=== PATIENT | male | born 1960 | race Caucasian/White ===

== ENCOUNTER 2018-10-31 22:58 | Emergency (ER) | payer MEDICARE ==
[2018-10-31 23:40] LABS: CHLORIDE,CL 106 mmol/L (98-107); SODIUM,NA 141 mmol/L (136-145)
--- NOTE | 2018-11-01 00:09 | EDM.PDOC ---
ED HPI GENERAL MEDICAL PROBLEM - General Chief Complaint: Trauma Stated Complaint: fall; laceration Time Seen by Provider: 10/31/18 23:23 Source of Information: Reports: Patient, EMS, Family History Limitations: Reports: Uncooperative (and intoxicated) - History of Present Illness INITIAL COMMENTS - FREE TEXT/NARRATIVE: Patient was out drinking tonight. After returning home had unwitnessed fall while having additional ETOH on own. Broken glass on floor. Uncertain if LOC after fall. Patient had large hematoma on front of forehead. Has multiple lacerations on lower 1/2 of face, behind ear, hands, legs. Very deep laceration right lower leg. Complaining of pain right lower leg. Does not remember how he fell or any circumstances around the fall. No other acute complaints. Brought by EMS with C-collar in place. Patient denies having any chronic medical problems and says he is not on any medications. Says that he quit drinking several months ago but then added that he has had a few drinks since then. Denies illegal drug use other than intermittent THC. Past Medical History - Past Health History Medical/Surgical History: Denies Medical/Surgical History Social & Family History - Tobacco Use Tobacco Use Within Last Twelve Months: No - Caffeine Use Caffeine Use: Reports: None - Alcohol Use Alcohol Use History: Yes Days Per Week of Alcohol Use Comment: Uncertain exactly how much he drinks, says that he quit, but admits he has had a few drinks since he quit. - Recreational Drug Use Recreational Drug Type: Reports: Marijuana/Hashish Review of Systems - Review of Systems Review Of Systems: See Below Constitutional: Reports: No Symptoms Eyes: Reports: No Symptoms Ears: Reports: No Symptoms Nose: Reports: No Symptoms Mouth/Throat: Reports: No Symptoms, Other (says teeth line up well, no difficulty opening and closing jaw) Respiratory: Reports: No Symptoms Cardiovascular: Reports: No Symptoms. Denies: Chest Pain GI/Abdominal: Reports: No Symptoms, Other (lower abdominal discomfort from need to urinate. Resolved after urination) Genitourinary: Reports: No Symptoms Musculoskeletal: Reports: Leg Pain (right) Skin: Reports: Wound (multiple small/medium lacerations face/hands/legs), Lumps (forehead) Neurological: Denies: Headache (denies), Numbness, Paresthesia, Tingling, Trouble Speaking Psychiatric: Reports: Other (Patient is not quite his usual self per ). Denies: Agitation, Hallucinations, Suicidal Ideation, Homicidal Ideation, Hallucinations (Auditory), Hallucinations (Visual) ED EXAM, GENERAL - Physical Exam Exam: See Below General Appearance: Alert, Other (smells of ETOH, no acute distress) Eye Exam: Bilateral Eye: EOMI, PERRL Ears: Hearing Grossly Normal, Other (laceration behind left ear) Nose: No: Nasal Deformity, Nasal Swelling Throat/Mouth: Normal Inspection, Normal Oropharynx, Normal Voice, No Airway Compromise Head: Facial Swelling (hematoma right forehead), Facial Tenderness (over lacerations). No: Sinus Tenderness Neck: Non-Tender (when palpated around C-collar) Respiratory/Chest: No Respiratory Distress, Lungs Clear, Normal Breath Sounds, No Accessory Muscle Use, Chest Non-Tender Cardiovascular: Regular Rate, Rhythm, No Edema, No Murmur GI/Abdominal: Normal Bowel Sounds, Soft, Non-Tender, No Distention (Male) Exam: Deferred Rectal (Males) Exam: Deferred Back Exam: Normal Inspection. No: CVA Tenderness (L), CVA Tenderness (R), Muscle Spasm, Paraspinal Tenderness, Vertebral Tenderness Extremities: Normal Range of Motion, Normal Capillary Refill, Other ( lacerations around hands/legs). No: Pedal Edema Neurological: Alert, Oriented, CN II-XII Intact, No Motor/Sensory Deficits, Other (Intoxicated) Psychiatric: Other (rather angry/grumpy demeanor, easily irritated) Skin Exam: Warm, Other (multiple small lacerations around hands/fingers, several lacerations lower half of face, one behind left ear, multiple lacerations legs including one very large laceration right lower leg approx 13cm , very deep, active bleeding if pressure removed. See ER flow sheet for more complete list of lacerations and length of them. ) Course - Orders/Labs/Meds Orders: Active Orders 24 hr Category Date Time Status Cervical Spine wo Cont [CT] Stat Exams 10/31/18 23:36 Ordered Head wo Cont [CT] Stat Exams 10/31/18 23:05 Taken Sodium Chloride 0.9% [Normal Saline] 1,000 ml Med 11/01/18 00:17 Ordered IV .BOLUS Medication Orders Sodium Chloride (Normal Saline) 1,000 mls @ 500 mls/hr IV .BOLUS ONE Stop: 11/01/18 02:16 Labs: Laboratory Tests 10/31/18 10/31/18 10/31/18 Range/Units 23:20 23:20 23:55 WBC 7.9 (4.0-10.2) K/uL RBC 4.49 (4.33-5.41) M/uL Hgb 15.0 (13.1-16.8) g/dL Hct 41.3 (39.0-49.0) % MCV 92.0 (84.0-98.0) fL MCH 33.4 H (28.2-33.3) pg MCHC 36.3 H (31.7-36.0) g/dL RDW 12.6 (11.2-14.1) % Plt Count 193 (150-350) K/uL Neut % (Auto) 59.1 (45.0-80.0) % Lymph % (Auto) 27.4 (10.0-50.0) % [place] % (Auto) 10.3 (2.0-14.0) % Eos % (Auto) 2.9 (0.0-5.0) % Baso % (Auto) 0.3 (0.0-2.0) % Neut # (Auto) 4.64 (1.40-7.00) K/uL Lymph # (Auto) 2.15 (0.50-3.50) K/uL [place] # (Auto) 0.81 (0.00-1.00) K/uL Eos # (Auto) 0.23 (0.00-0.50) K/uL Baso # (Auto) 0.02 (0.00-0.20) K/uL Sodium 141 (136-145) mmol/L Potassium 3.4 L (3.5-5.1) mmol/L Chloride 106 (98-107) mmol/L Carbon Dioxide 18.7 L (21.0-32.0) mmol/L BUN 17 (7-18) mg/dL Creatinine 0.85 (0.51-1.17) mg/dL Est Cr Clr Drug Dosing TNP Estimated GFR (MDRD) > 60 mL/min Glucose 120 H (74-106) mg/dL Calcium 9.0 (8.5-10.1) mg/dL Total Bilirubin 0.3 (0.2-1.0) mg/dL AST 33 (15-37) U/L ALT 70 (12-78) U/L Alkaline Phosphatase 86 (46-116) IU/L Total Protein 7.4 (6.4-8.2) g/dL Albumin 4.0 (3.4-5.0) g/dL Specimen Type Urine Color Urine Appearance Urine pH (5.0-9.0) Ur Specific [place] (1.005-1.030) Urine Protein (NEGATIVE) mg/dL Urine Glucose (UA) (NEGATIVE) mg/dL Urine Ketones (NEGATIVE) mg/dL Urine Occult Blood (NEGATIVE) Urine Nitrite (NEGATIVE) Urine Bilirubin (NEGATIVE) Urine Urobilinogen (0.2-1.0) E.U./dL Ur Leukocyte Esterase (NEGATIVE) Urine RBC /HPF Urine WBC /HPF Ur Epithelial Cells /LPF Urine Bacteria (NONE TO FEW) /HPF Urine Opiates Screen Negative (NEGATIVE) Urine Methadone Screen Negative (NEGATIVE) U Acetaminophen Screen Negative (NEGATIVE) Ur Barbiturates Screen Negative (NEGATIVE) Ur Tricyclics Screen Negative (NEGATIVE) Ur Phencyclidine Scrn Negative (NEGATIVE) Ur Amphetamine Screen Negative (NEGATIVE) U Methamphetamines Scrn Negative (NEGATIVE) U Benzodiazepines Scrn Negative (NEGATIVE) U Cocaine Metab Screen Negative (NEGATIVE) U Marijuana (THC) Screen Positive H (NEGATIVE) Ethyl Alcohol 0.221 H (0.000-0.080) g/dL 10/31/18 Range/Units 23:55 WBC (4.0-10.2) K/uL RBC (4.33-5.41) M/uL Hgb (13.1-16.8) g/dL Hct (39.0-49.0) % MCV (84.0-98.0) fL MCH (28.2-33.3) pg MCHC (31.7-36.0) g/dL RDW (11.2-14.1) % Plt Count (150-350) K/uL Neut % (Auto) (45.0-80.0) % Lymph % (Auto) (10.0-50.0) % [place] % (Auto) (2.0-14.0) % Eos % (Auto) (0.0-5.0) % Baso % (Auto) (0.0-2.0) % Neut # (Auto) (1.40-7.00) K/uL Lymph # (Auto) (0.50-3.50) K/uL [place] # (Auto) (0.00-1.00) K/uL Eos # (Auto) (0.00-0.50) K/uL Baso # (Auto) (0.00-0.20) K/uL Sodium (136-145) mmol/L Potassium (3.5-5.1) mmol/L Chloride (98-107) mmol/L Carbon Dioxide (21.0-32.0) mmol/L BUN (7-18) mg/dL Creatinine (0.51-1.17) mg/dL Est Cr Clr Drug Dosing Estimated GFR (MDRD) mL/min Glucose (74-106) mg/dL Calcium (8.5-10.1) mg/dL Total Bilirubin (0.2-1.0) mg/dL AST (15-37) U/L ALT (12-78) U/L Alkaline Phosphatase (46-116) IU/L Total Protein (6.4-8.2) g/dL Albumin (3.4-5.0) g/dL Specimen Type Urinvoid Urine Color Yellow Urine Appearance Clear Urine pH 5.5 (5.0-9.0) Ur Specific [place] <= 1.005 (1.005-1.030) Urine Protein Negative (NEGATIVE) mg/dL Urine Glucose (UA) Negative (NEGATIVE) mg/dL Urine Ketones Negative (NEGATIVE) mg/dL Urine Occult Blood Negative (NEGATIVE) Urine Nitrite Negative (NEGATIVE) Urine Bilirubin Negative (NEGATIVE) Urine Urobilinogen 0.2 (0.2-1.0) E.U./dL Ur Leukocyte Esterase Negative (NEGATIVE) Urine RBC Not seen /HPF Urine WBC Not seen /HPF Ur Epithelial Cells Occasional /LPF Urine Bacteria Occasional (NONE TO FEW) /HPF Urine Opiates Screen (NEGATIVE) Urine Methadone Screen (NEGATIVE) U Acetaminophen Screen (NEGATIVE) Ur Barbiturates Screen (NEGATIVE) Ur Tricyclics Screen (NEGATIVE) Ur Phencyclidine Scrn (NEGATIVE) Ur Amphetamine Screen (NEGATIVE) U Methamphetamines Scrn (NEGATIVE) U Benzodiazepines Scrn (NEGATIVE) U Cocaine Metab Screen (NEGATIVE) U Marijuana (THC) Screen (NEGATIVE) Ethyl Alcohol (0.000-0.080) g/dL Meds: Medications Generic Name Dose Route Start Last Admin Trade Name Freq PRN Reason Stop Dose Admin Sodium Chloride 1,000 mls @ 500 mls/hr 11/01/18 00:17 Normal Saline IV 11/01/18 02:16 .BOLUS ONE Discontinued Medications Generic Name Dose Route Start Last Admin Trade Name Freq PRN Reason Stop Dose Admin Thiamine HCl 100 mg/ Sodium 101 mls @ 202 mls/hr 11/01/18 00:18 Chloride IV 11/01/18 00:19 ONETIME ONE Ondansetron HCl 4 mg 11/01/18 00:18 Zofran IVPUSH 11/01/18 00:19 ONETIME ONE Potassium Chloride 40 meq 11/01/18 00:17 Potassium Chloride Solution PO 11/01/18 00:18 ONETIME ONE - Radiology Interpretation Free Text/Narrative:: CT of head and neck ordered due to patient's fall/history of trauma, and intoxication. Head CT read as negative except for the visible hematoma near the forehead. - Re-Assessments/Exams Free Text/Narrative Re-Assessment/Exam: Baseline exam performed, CT studies ordered, labs requested. Patient stable/vital signs stable. Blood ETOH .22 Given the depth/complexity of large laceration of the right lower leg, it was felt appropriate to refer the patient to a higher level of care where Surgery coverage available to evaluate and treat patient. Call placed to [facility]. Patient accepted by from their ER. Patient refused to keep C collar in place. Head CT cleared by Radiology but there was some motion artifact in the neck scan. No obvious fractures per Radiology but they recommended repeating the scan once patient is sober and more cooperative if point tenderness or other concerns arise later. IV fluids ordered. Zofran, Thiamine ordered. Neck nontender after patient removed C-collar. Transfer to [facility] by EMS. Departure - Departure Time of Disposition: 00:40 Disposition: DC/Tfer to Acute Hospital 02 Condition: Good Clinical Impression: Laceration of multiple sites Alcohol intoxication Qualifiers: Complication of substance-induced condition: uncomplicated Qualified Code(s): F10.920 - Alcohol use, unspecified with intoxication, uncomplicated Laceration of right lower extremity Qualifiers: Encounter type: initial encounter Qualified Code(s): S81.811A - Laceration without foreign body, right lower leg, initial encounter Head contusion Qualifiers: Encounter type: initial encounter Contusion of head detail: unspecified part of head Qualified Code(s): S00.93XA - Contusion of unspecified part of head, initial encounter - Discharge Information *PRESCRIPTION DRUG MONITORING PROGRAM REVIEWED*: Not Applicable *COPY OF PRESCRIPTION DRUG MONITORING REPORT IN PATIENT LORIN: Not Applicable Forms: ED Department Discharge - My Orders Last 24 Hours: My Active Orders 10/31/18 23:05 Head wo Cont [CT] Stat 10/31/18 23:36 Cervical Spine wo Cont [CT] Stat 11/01/18 00:17 Sodium Chloride 0.9% [Normal Saline] 1,000 ml IV .BOLUS - Assessment/Plan Last 24 Hours: My Active Orders 10/31/18 23:05 Head wo Cont [CT] Stat 10/31/18 23:36 Cervical Spine wo Cont [CT] Stat 11/01/18 00:17 Sodium Chloride 0.9% [Normal Saline] 1,000 ml IV .BOLUS
[2018-11-01] MEDS ORDERED: Sodium Chloride 0.9% 1,000 ML IV ONE (00:17)
[2018-11-01] MEDS ORDERED: Potassium Chloride 10% 20 MEQ/15 ML Soln 15 ML UD Cup PO ONE (00:17)
[2018-11-01] MEDS ORDERED: Ondansetron 4 MG/2 ML SDV IVPUSH ONE (00:18)
[2018-11-01 00:19] LABS: BARBITURATE SCREEN,URINE NEGATIVE (NEGATIVE); BENZODIAZEPINES SCREEN,URINE NEGATIVE (NEGATIVE); TCA SCREEN,URINE NEGATIVE (NEGATIVE); THC SCREEN,URINE 50 NG/ML POSITIVE (NEGATIVE)
[2018-11-01] MEDS: Thiamine 100 MG in Sodium Chloride 0.9% 100 ML IV ONE (00:30)
== END 2018-11-01 00:55 ==
LOC: LL.ED 22:58
DX: S81.811A Laceration without foreign body, right lower leg, initial encounter (principal); S01.312A Laceration without foreign body of left ear, initial encounter; S61.219A Laceration without foreign body of unspecified finger without damage to nail, initial encounter; S81.812A Laceration without foreign body, left lower leg, initial encounter; S01.81XA Laceration without foreign body of other part of head, initial encounter; F10.120 Alcohol abuse with intoxication, uncomplicated; Y90.7 Blood alcohol level of 200-239 mg/100 ml; W19.XXXA Unspecified fall, initial encounter; Y92.009 Unspecified place in unspecified non-institutional (private) residence as the place of occurrence of the external cause
CPT/HCPCS: 36415; 70450; 72125; 80053; 80305-QW; 81001; 85025; 96365; 96375; 99284; 99285-25; A9270-GY; G0390; G0480; J2405; J3411; J7030; J7050

== ENCOUNTER 2020-11-20 12:17 | Emergency (ER) | payer MEDICAID, MEDICARE, OTHER ==
[2020-11-20] MEDS ORDERED: Lactated Ringers 1,000 ML IV ONE ×2 (12:28→13:08)
[2020-11-20] MEDS ORDERED: diphenhydrAMINE 50 MG/ML SDV IVPUSH ONE (12:28)
[2020-11-20] MEDS ORDERED: Morphine 4 MG/ML Syringe IVPUSH ONE (12:28)
[2020-11-20] MEDS ORDERED: Sodium Chloride 0.9% 10 ML Syringe FLUSH PRN (12:28)
--- NOTE | 2020-11-20 12:35 | EDM.PDOC ---
ED [facility] GENERAL MEDICAL PROBLEM - General Chief Complaint: Abdominal Pain Stated Complaint: abdominal pain Time Seen by Provider: 11/20/20 12:18 Source of Information: Reports: Patient History Limitations: Reports: No Limitations - History of Present Illness INITIAL COMMENTS - FREE TEXT/NARRATIVE: Patient comes emergency department today from home with complaints of abdominal pain and right flank pain. This patient yesterday was without any symptoms. At 4:00 this morning he woke up and he has had multiple diarrheal stools. He has generalized abdominal pain as well as right flank pain. He does complain of urinary frequency no dysuria or hematuria. No fever no chills. No chest pain no shortness of breath or difficulty breathing. No cough or congestion. He has had no surgeries on his abdomen in the past. He has not been on antibiotics recently. No one else is ill in his home. He has not been traveling. He has had nausea without vomiting. His pain is out of control all over his abdomen into his back. He does have a history of melanoma. - Related Data Allergies Allergy/AdvReac Type Severity Reaction Status Date / Time No Known Allergies Allergy Verified 11/20/20 12:21 Home Meds: Home Meds . [No Known Home Meds] 11/20/20 [History] Past Medical History - Past Health History Medical/Surgical History: Denies Medical/Surgical History Social & Family History - Caffeine Use Caffeine Use: Reports: None ED ROS GENERAL - Review of Systems Review Of Systems: Comprehensive ROS is negative, except as noted in HPI. ED EXAM, GI/ABD - Physical Exam Exam: See Below Exam Limited By: No Limitations General Appearance: Alert, WD/WN, Mild Distress Eyes: Bilateral: EOMI Ears: Normal External Exam Nose: Normal Inspection Throat/Mouth: Normal Inspection Head: Atraumatic, Normocephalic, Sinus Tenderness Neck: Supple Respiratory/Chest: No Respiratory Distress, Lungs Clear, Normal Breath Sounds, No Accessory Muscle Use, Chest Non-Tender Cardiovascular: Normal Peripheral Pulses, Regular Rate, Rhythm GI/Abdominal Exam: Normal Bowel Sounds, Soft, Distended, Guarding (RLQ and LLQ), Rebound, Tender (generalized without rigidity. ). No: Rigid (Male) Exam: Deferred Rectal (Males) Exam: Deferred Back Exam: Normal Inspection, Full Range of Motion Extremities: Normal Inspection, Normal Range of Motion, Non-Tender, No Pedal Edema, Normal Capillary Refill Neurological: Alert, Oriented, Normal Cognition, Normal Gait, No Motor/Sensory Deficits Psychiatric: Normal Affect, Normal Mood Skin Exam: Warm, Dry, Intact, Normal Color, No Rash Course - Vital Signs Last Recorded V/S: Last Vital Signs Temp 98.3 F 11/20/20 12:25 Pulse 58 L 11/20/20 13:23 Resp 18 11/20/20 13:23 BP 115/69 11/20/20 13:23 Pulse Ox 100 11/20/20 13:23 - Orders/Labs/Meds Orders: Active Orders 24 hr Category Date Time Status Peripheral IV Care [RC] . DIRECTED Care 11/20/20 12:28 Active Abdomen Pelvis w Cont [CT] Stat Exams 11/20/20 12:36 Taken Lactated Ringers [Ringers, Lactated] 1,000 ml Med 11/20/20 13:08 Active IV .BOLUS Piperacillin/Tazobactam [Zosyn] 3.375 gm Med 11/20/20 13:50 Ordered Sodium Chloride 0.9% [Normal Saline] 100 ml IV NOW Sodium Chloride 0.9% [Saline Flush] Med 11/20/20 12:28 Active 10 ml FLUSH ASDIRECTED PRN Peripheral IV Insertion Adult [OM.PC] Stat Oth 11/20/20 12:27 Ordered Medication Orders Lactated Ringer's (Ringers, Lactated) 1,000 mls @ 1,000 mls/hr IV .BOLUS ONE Stop: 11/20/20 14:07 Last Admin: 11/20/20 13:46 Dose: 1,000 mls/hr Documented by: ODETTE Piperacillin Sod/Tazobactam (Sod 3.375 gm/ Sodium Chloride) 100 mls @ 200 mls/hr IV NOW STA Stop: 11/20/20 14:19 Sodium Chloride (Sodium Chloride 0.9% 10 Ml Syringe) 10 ml FLUSH ASDIRECTED PRN PRN Reason: Keep Vein Open Last Admin: 11/20/20 12:41 Dose: 10 ml Documented by: ODETTE Labs: Laboratory Tests 11/20/20 11/20/20 11/20/20 Range/Units 12:35 12:35 12:35 WBC 16.1 H (4.0-10.2) K/uL RBC 5.37 (4.33-5.41) M/uL Hgb 17.1 H D (13.1-16.8) g/dL Hct 46.5 (39.0-49.0) % MCV 86.6 D (84.0-98.0) fL MCH 31.8 (28.2-33.3) pg MCHC 36.8 H (31.7-36.0) g/dL RDW 12.6 (11.2-14.1) % Plt Count 222 (150-350) K/uL Neut % (Auto) 80.7 H (45.0-80.0) % Lymph % (Auto) 11.7 (10.0-50.0) % [place] % (Auto) 6.8 (2.0-14.0) % Eos % (Auto) 0.7 (0.0-5.0) % Baso % (Auto) 0.1 (0.0-2.0) % Neut # (Auto) 12.97 H (1.40-7.00) K/uL Lymph # (Auto) 1.88 (0.50-3.50) K/uL [place] # (Auto) 1.09 H (0.00-1.00) K/uL Eos # (Auto) 0.11 (0.00-0.50) K/uL Baso # (Auto) 0.01 (0.00-0.20) K/uL Sodium 138 (136-145) mmol/L Potassium 3.9 (3.5-5.1) mmol/L Chloride 103 (98-107) mmol/L Carbon Dioxide 21.8 (21.0-32.0) mmol/L BUN 14 (7-18) mg/dL Creatinine 0.97 (0.51-1.17) mg/dL Est Cr Clr Drug Dosing 87.33 mL/min Estimated GFR (MDRD) > 60 mL/min Glucose 105 H (70-99) mg/dL Lactic Acid 1.8 (0.4-2.0) mmol/L Calcium 9.4 (8.5-10.1) mg/dL Total Bilirubin 0.6 (0.2-1.0) mg/dL AST 19 (15-37) U/L ALT 36 (12-78) U/L Alkaline Phosphatase 85 (46-116) IU/L C-Reactive Protein < 0.2 (<=0.9) mg/dL Total Protein 7.5 (6.4-8.2) g/dL Albumin 4.0 (3.4-5.0) g/dL Lipase 97 (73-393) U/L Specimen Type Urine Color Urine Appearance Urine pH (5.0-9.0) Ur Specific [place] (1.005-1.030) Urine Protein (NEGATIVE) mg/dL Urine Glucose (UA) (NEGATIVE) mg/dL Urine Ketones (NEGATIVE) mg/dL Urine Occult Blood (NEGATIVE) Urine Nitrite (NEGATIVE) Urine Bilirubin (NEGATIVE) Urine Urobilinogen (0.2-1.0) E.U./dL Ur Leukocyte Esterase (NEGATIVE) 11/20/20 Range/Units 13:25 WBC (4.0-10.2) K/uL RBC (4.33-5.41) M/uL Hgb (13.1-16.8) g/dL Hct (39.0-49.0) % MCV (84.0-98.0) fL MCH (28.2-33.3) pg MCHC (31.7-36.0) g/dL RDW (11.2-14.1) % Plt Count (150-350) K/uL Neut % (Auto) (45.0-80.0) % Lymph % (Auto) (10.0-50.0) % [place] % (Auto) (2.0-14.0) % Eos % (Auto) (0.0-5.0) % Baso % (Auto) (0.0-2.0) % Neut # (Auto) (1.40-7.00) K/uL Lymph # (Auto) (0.50-3.50) K/uL [place] # (Auto) (0.00-1.00) K/uL Eos # (Auto) (0.00-0.50) K/uL Baso # (Auto) (0.00-0.20) K/uL Sodium (136-145) mmol/L Potassium (3.5-5.1) mmol/L Chloride (98-107) mmol/L Carbon Dioxide (21.0-32.0) mmol/L BUN (7-18) mg/dL Creatinine (0.51-1.17) mg/dL Est Cr Clr Drug Dosing mL/min Estimated GFR (MDRD) mL/min Glucose (70-99) mg/dL Lactic Acid (0.4-2.0) mmol/L Calcium (8.5-10.1) mg/dL Total Bilirubin (0.2-1.0) mg/dL AST (15-37) U/L ALT (12-78) U/L Alkaline Phosphatase (46-116) IU/L C-Reactive Protein (<=0.9) mg/dL Total Protein (6.4-8.2) g/dL Albumin (3.4-5.0) g/dL Lipase (73-393) U/L Specimen Type Urinvoid Urine Color Yellow Urine Appearance Clear Urine pH 8.5 (5.0-9.0) Ur Specific [place] 1.015 (1.005-1.030) Urine Protein Negative (NEGATIVE) mg/dL Urine Glucose (UA) Negative (NEGATIVE) mg/dL Urine Ketones Negative (NEGATIVE) mg/dL Urine Occult Blood Negative (NEGATIVE) Urine Nitrite Negative (NEGATIVE) Urine Bilirubin Negative (NEGATIVE) Urine Urobilinogen 0.2 (0.2-1.0) E.U./dL Ur Leukocyte Esterase Negative (NEGATIVE) Meds: Medications Generic Name Dose Route Start Last Admin Trade Name Freq PRN Reason Stop Dose Admin Lactated Ringer's 1,000 mls @ 1,000 mls/hr 11/20/20 13:08 11/20/20 13:46 Ringers, Lactated IV 11/20/20 14:07 1,000 mls/hr .BOLUS ONE Administration Piperacillin Sod/Tazobactam 100 mls @ 200 mls/hr 11/20/20 13:50 Sod 3.375 gm/ Sodium Chloride IV 11/20/20 14:19 NOW STA Sodium Chloride 10 ml 11/20/20 12:28 11/20/20 12:41 Sodium Chloride 0.9% 10 Ml Syringe FLUSH 10 ml ASDIRECTED PRN Administration Keep Vein Open Discontinued Medications Generic Name Dose Route Start Last Admin Trade Name Freq PRN Reason Stop Dose Admin Diphenhydramine HCl 25 mg 11/20/20 12:28 11/20/20 12:40 Diphenhydramine 50 Mg/Ml Sdv IVPUSH 11/20/20 12:29 25 mg ONETIME ONE Administration Lactated Ringer's 1,000 mls @ 1,000 mls/hr 11/20/20 12:28 11/20/20 12:40 Ringers, Lactated IV 11/20/20 13:27 1,000 mls/hr .BOLUS ONE Administration Iopamidol 100 ml 11/20/20 12:38 Iopamidol 612 Mg/Ml 100 Ml Bottle IVPUSH 11/20/20 12:39 ONETIME STA Morphine Sulfate 4 mg 11/20/20 12:28 11/20/20 12:38 Morphine 4 Mg/Ml Syringe IVPUSH 11/20/20 12:29 4 mg ONETIME ONE Administration - Radiology Interpretation Free Text/Narrative:: CT scan per radiologist verbal report concerning for appendicitis without rupture. - Re-Assessments/Exams Free Text/Narrative Re-Assessment/Exam: 11/20/20 12:36 IV LR 1 liter wide open. Benadryl and morphine for pain and nausea. labs drawn. CT abd pelvis ordered. 11/20/20 14:12 Patient does have a an elevated white blood cell count at 16. His hemoglobin is elevated at 17 most likely due to dehydration. His urinalysis is negative. He still is quite uncomfortable with pain and was repeated with Dilaudid. I reviewed the CT results with the patient concerning for an acute appendicitis. Zosyn 3.375grams ivpb ordered. Best recommendation for this is surgical intervention or evaluation at minimum. I called and spoke with Dr. Guevara at [facility] in [place]. HPI ER COURSE findings and concerns were relayed to her. She accepted the patient in transfer at this time. Okay by private vehicle as the patient requests. NOTHING TO EAT OR DRINK ENROUTE TO [facility] in [place]. I discussed the plan of care with the patient and the instructions of NPO. HE is understanding and his questions answered and he will be transferred by private vehicle after his anti-biotics have infused. Departure - Departure Time of Disposition: 13:57 Disposition: DC/Tfer to [facility] 02 Clinical Impression: Appendicitis, acute Qualifiers: Acute appendicitis type: unspecified acute appendicitis type Qualified Code(s): K35.80 - Unspecified acute appendicitis - Discharge Information Referrals: Kerrie Molina PA-C [Primary Care Provider] - Forms: ED Department Discharge, Interfacility Transfer EMTALA Additional Instructions: Go directly to [facility] in [place]. NOTHING TO EAT OR DRINK enroute. Sepsis Event Note (ED) - Evaluation Sepsis Screening Result: No Definite Risk - Focused Exam Vital Signs: Vital Signs Temp Pulse Resp BP Pulse Ox 11/20/20 13:23 58 L 18 115/69 100 11/20/20 12:25 98.3 F 65 16 142/84 H 100 - My Orders Last 24 Hours: My Active Orders 11/20/20 12:27 Peripheral IV Insertion Adult [OM.PC] Stat 11/20/20 12:28 Peripheral IV Care [RC] . DIRECTED Sodium Chloride 0.9% [Saline Flush] 10 ml FLUSH ASDIRECTED PRN 11/20/20 12:36 Abdomen Pelvis w Cont [CT] Stat 11/20/20 13:08 Lactated Ringers [Ringers, Lactated] 1,000 ml IV .BOLUS 11/20/20 13:50 Piperacillin/Tazobactam [Zosyn] 3.375 gm Sodium Chloride 0.9% [Normal Saline] 100 ml IV NOW - Assessment/Plan Last 24 Hours: My Active Orders 11/20/20 12:27 Peripheral IV Insertion Adult [OM.PC] Stat 11/20/20 12:28 Peripheral IV Care [RC] . DIRECTED Sodium Chloride 0.9% [Saline Flush] 10 ml FLUSH ASDIRECTED PRN 11/20/20 12:36 Abdomen Pelvis w Cont [CT] Stat 11/20/20 13:08 Lactated Ringers [Ringers, Lactated] 1,000 ml IV .BOLUS 11/20/20 13:50 Piperacillin/Tazobactam [Zosyn] 3.375 gm Sodium Chloride 0.9% [Normal Saline] 100 ml IV NOW
[2020-11-20] MEDS ORDERED: Iopamidol 612 MG/ML 100 ML Bottle IVPUSH STA (12:38)
[2020-11-20 12:56] LABS: CHLORIDE,CL 103 mmol/L (98-107); SODIUM,NA 138 mmol/L (136-145)
[2020-11-20] MEDS ORDERED: Piperacillin/Tazobactam 3.375 GM in Sodium Chloride 0.9% 100 ML IV STA (13:50)
[2020-11-20] MEDS ORDERED: HYDROmorphone 0.5 MG/0.5 ML Syringe IV ONE ×2 (13:57→14:35)
== END 2020-11-20 14:45 ==
LOC: LL.ED 12:17 → SUPCPDRO 12:17 → LL.ED 14:45
DX: K35.80 Unspecified acute appendicitis (principal)
CPT/HCPCS: 74177; 80053; 81003; 83605; 83690; 85025; 86140; 96365; 96375; 96376; 99285-25; J1170; J1200; J2270; J2543; J7120

== ENCOUNTER 2022-10-22 09:27 | Day surgery (SDC) | payer MEDICARE, OTHER ==
[~2022-10-22 09:27] MED LIST: Midazolam 1 MG/ML 2 ML SDV ONE; Propofol 200 MG/20 ML SDV ONE
[2022-10-22] MEDS ORDERED: Sodium Chloride 0.9% 10 ML Syringe FLUSH PRN (09:45)
[2022-10-22] MEDS ORDERED: Lactated Ringers 1,000 ML IV SCH (09:45)
== END 2022-10-22 12:21 | disposition home or self-care (01) ==
LOC: LL.SDS 09:27
PROVIDERS: ATTEND Surgery
DX: D12.0 Benign neoplasm of cecum (principal); D12.3 Benign neoplasm of transverse colon; D12.5 Benign neoplasm of sigmoid colon; K59.01 Slow transit constipation; Q55.69 Other congenital malformation of penis; R39.198 Other difficulties with micturition; M19.90 Unspecified osteoarthritis, unspecified site
CPT/HCPCS: 00812; J2250; J2704; J7120

== ENCOUNTER 2022-10-28 14:38 | Emergency (ER) | payer MEDICARE, OTHER ==
[2022-10-28] MEDS ORDERED: Sodium Chloride 0.9% 10 ML Syringe FLUSH PRN (14:40)
[2022-10-28 14:50] LABS: BASOPHILS ABSOLUTE AUTO 0.02 K/uL (0.00-0.20); BASOPHILS PERCENT AUTO 0.3 % (0.0-2.0); EOSINOPHILS ABSOLUTE AUTO 0.28 K/uL (0.00-0.50); EOSINOPHILS PERCENT AUTO 3.8 % (0.0-5.0); HEMATOCRIT 40.1 % (39.0-49.0); HEMOGLOBIN 14.2 g/dL (13.1-16.8); LYMPHOCYTES ABSOLUTE AUTO 2.41 K/uL (0.50-3.50); LYMPHOCYTES PERCENT AUTO 32.7 % (10.0-50.0); MEAN CORPUSCULAR HEMOGLOBIN 30.7 pg (28.2-33.3); MEAN CORPUSCULAR HGB CONC 35.4 g/dL (31.7-36.0); MEAN CORPUSCULAR VOLUME 86.8 fL (84.0-98.0); MONOCYTES ABSOLUTE AUTO 0.79 K/uL (0.00-1.00); MONOCYTES PERCENT AUTO 10.7 % (2.0-14.0); NEUTROPHILS ABSOLUTE AUTO 3.88 K/uL (1.40-7.00); NEUTROPHILS PERCENT AUTO 52.5 % (45.0-80.0); PLATELET COUNT,PLT 182 K/uL (150-350); RED BLOOD CELL COUNT 4.62 M/uL (4.33-5.41); RED CELL DISTRIBUTION WIDTH 12.6 % (11.2-14.1); WHITE BLOOD CELL COUNT,WBC 7.4 K/uL (4.0-10.2)
[2022-10-28] MEDS: Acetaminophen 500 MG Tab PO ONE (15:17)
[2022-10-28 15:24] LABS: ALANINE AMINOTRANSFERASE,ALT 31 U/L (12-78); ALBUMIN 3.9 g/dL (3.4-5.0); ALKALINE PHOSPHATASE 92 IU/L (46-116); ANION GAP 7.6 meq/L (7-15); ASPARTATE AMNIOTRANSFERASE,AST 20 U/L (15-37); BILIRUBIN TOTAL 0.4 mg/dL (0.2-1.0); BLOOD UREA NITROGEN,BUN 20 mg/dL (7-18); CALCIUM 8.8 mg/dL (8.5-10.1); CARBON DIOXIDE,CO2 28.4 mmol/L (21.0-32.0); CHLORIDE,CL 106 mmol/L (98-107); CREATININE 1.18 mg/dL (0.51-1.17); ESTIMATED GFR 70 mL/min (>=60); GLUCOSE RANDOM 94 mg/dL (70-99); SODIUM,NA 142 mmol/L (136-145)
[2022-10-28 15:25] LABS: C-REACTIVE PROTEIN < 0.2 mg/dL (<=0.9)
== END 2022-10-28 16:00 | disposition home or self-care (01) ==
LOC: LL.ED 14:38
DX: G51.0 Bell's palsy (principal)
CPT/HCPCS: 36415; 70450; 80053; 82947; 83605; 85025; 85379; 86140; 93005; 99284; A9270-GY